=== PATIENT | male | born 1985 ===

== ENCOUNTER 2021-09-26 21:09 | Inpatient (IN) | payer SELFPAY ==
[2021-09-26 22:27] LABS: CHLORIDE,CL 105 mmol/L (98-107); ESTIMATED GFR 106 mL/min (>=60); SODIUM,NA 145 mmol/L (136-145)
[2021-09-26] MEDS ORDERED: Acetaminophen 325 MG Tab PO PRN (23:39)
[2021-09-26] MEDS ORDERED: Calcium Chloride 10% 1 GM/10 ML Syringe IVPUSH ONE (23:48)
[2021-09-27] MEDS ORDERED: LORazepam 1 MG Tab PO PRN ×3 (00:05→23:04)
[2021-09-27] MEDS ORDERED: Calcium Gluc in NaCl, ISO-OSM 1,000 MG in Premix Bag 1 BAG IV ONE ×2 (00:44)
[2021-09-27] MEDS: Gabapentin 300 MG Cap PO SCH ×3 (07:59→20:22)
[2021-09-27] MEDS: Calcium Carbonate/Vitamin D3 625 MG-125 Unit Tab PO SCH ×3 (07:59→20:22)
[2021-09-27 08:16] LABS: ANION GAP 19.3 meq/L (7-15)
[2021-09-27] MEDS: LORazepam 2 MG/ML SDV IVPUSH PRN ×3 (13:43→23:48)
[2021-09-27 16:03] LABS: BARBITURATE SCREEN,URINE NEGATIVE (NEGATIVE); BENZODIAZEPINES SCREEN,URINE POSITIVE (NEGATIVE); EDDP,URINE SCREEN NEGATIVE (NEGATIVE); TCA SCREEN,URINE NEGATIVE (NEGATIVE); THC SCREEN,URINE 50 NG/ML POSITIVE (NEGATIVE)
[2021-09-27 16:06] LABS: BUPRENORPHINE SCREEN,URINE NEGATIVE (NEGATIVE)
[2021-09-28] MEDS: LORazepam 2 MG/ML SDV IVPUSH PRN ×4 (01:35→09:08)
[2021-09-28] MEDS: Haloperidol Lactate 5 MG/ML SDV IVPUSH PRN ×2 (07:27→14:40)
[2021-09-28] MEDS ORDERED: Calcium Gluconate 10% 1 GM/10 ML SDV IVPUSH ONE (07:49)
[2021-09-28 08:26] LABS: ANION GAP 12.3 meq/L (7-15)
[2021-09-28] MEDS ORDERED: Calcium Gluconate 10% 1 GM/10 ML SDV ONE (09:56)
[2021-09-28] MEDS ORDERED: Sodium Chloride 0.9% 1,000 ML IV SCH (10:00)
[2021-09-28] MEDS: Potassium Chloride Riders 10 MEQ in Premix Bag 1 BAG IV SCH ×2 (10:21→11:29)
[2021-09-28] MEDS: Gabapentin 300 MG Cap PO SCH ×3 (11:31→18:03)
[2021-09-28] MEDS: Calcium Carbonate/Vitamin D3 625 MG-125 Unit Tab PO SCH ×3 (11:32→18:03)
[2021-09-28] MEDS ORDERED: Folic Acid 1 MG Tab PO SCH (12:00)
[2021-09-28] MEDS: Magnesium Sulfate/Water 2 GM in Premix Bag 1 BAG IV SCH ×2 (12:31→15:15)
[2021-09-28] MEDS ORDERED: LORazepam 1 MG Tab PO PRN (13:51)
[2021-09-28 16:14] LABS: ANION GAP 10.5 meq/L (7-15)
[2021-09-28] MEDS ORDERED: Potassium Chloride Riders 10 MEQ in Premix Bag 1 BAG IV ONE (19:15)
[2021-09-29] MEDS ORDERED: Thiamine 200 MG/2 ML MDV IVPUSH SCH (12:00)
== END 2021-09-28 20:50 | DRG 897 ==
LOC: LL.ED 21:09 → LL.MS 22:45
PROVIDERS: ADMIT Family Medicine; ATTEND Emergency Medicine
DX: F10.10 Alcohol abuse, uncomplicated (principal); R53.1 Weakness; K76.9 Liver disease, unspecified; E87.6 Hypokalemia; E83.51 Hypocalcemia; F19.10 Other psychoactive substance abuse, uncomplicated; R20.0 Anesthesia of skin; E61.2 Magnesium deficiency; R56.9 Unspecified convulsions; Z86.73 Personal history of transient ischemic attack (TIA), and cerebral infarction without residual deficits; Z87.820 Personal history of traumatic brain injury; Z87.898 Personal history of other specified conditions
CPT/HCPCS: 36415; 70450; 80048; 80053; 80305-QW; 80307; 82140; 83735; 85025; 85610; 93005; 93010; 97163-GP; 99223; 99233; 99239; A9270-GY; J0610; J1630; J2060; J3475; J3480; J7030

== ENCOUNTER 2021-10-06 01:14 | Emergency (ER) | payer SELFPAY ==
[2021-10-06] MEDS ORDERED: Sodium Chloride 0.9% 10 ML Syringe FLUSH PRN (01:18)
[2021-10-06] MEDS ORDERED: Sodium Chloride 0.9% 1,000 ML IV ONE ×3 (01:18→08:36)
[2021-10-06 02:16] LABS: CHLORIDE,CL 111 mmol/L (98-107); SODIUM,NA 147 mmol/L (136-145)
[2021-10-06 02:17] LABS: ANION GAP 14.9 meq/L (7-15); ESTIMATED GFR 123 mL/min (>=60)
[2021-10-06] MEDS ORDERED: LORazepam 1 MG Tab PO ONE (04:00)
[2021-10-06 06:49] LABS: BARBITURATE SCREEN,URINE NEGATIVE (NEGATIVE); BENZODIAZEPINES SCREEN,URINE POSITIVE (NEGATIVE); EDDP,URINE SCREEN NEGATIVE (NEGATIVE); TCA SCREEN,URINE NEGATIVE (NEGATIVE); THC SCREEN,URINE 50 NG/ML NEGATIVE (NEGATIVE)
[2021-10-06 06:52] LABS: BUPRENORPHINE SCREEN,URINE NEGATIVE (NEGATIVE)
[2021-10-06] MEDS ORDERED: Lactated Ringers 1,000 ML IV SCH (08:45)
[2021-10-06] MEDS ORDERED: Sodium Chloride 0.45% 1,000 ML IV SCH (08:45)
== END 2021-10-06 11:15 | disposition still patient (30) ==
LOC: LL.ED 01:14
DX: F10.10 Alcohol abuse, uncomplicated (principal); Y90.1 Blood alcohol level of 20-39 mg/100 ml
CPT/HCPCS: 36415; 80053; 80305-QW; 80307; 81003; 83605; 83735; 85025; 96361; 96365; 99284; 99285-25; A9270-GY; J3475; J7030

== ENCOUNTER 2021-10-27 12:26 | Emergency (ER) | payer SELFPAY ==
[2021-10-27] MEDS ORDERED: LORazepam 2 MG/ML SDV IVPUSH PRN (13:08)
[2021-10-27] MEDS: Sodium Chloride 0.9% 10 ML Syringe FLUSH PRN ×2 (13:32→15:00)
[2021-10-27 14:07] LABS: ANION GAP 16.7 meq/L (7-15)
[2021-10-27] MEDS ORDERED: Potassium Chloride 20 MEQ Tab.ER PO ONE ×2 (14:48→19:02)
[2021-10-27] MEDS: Magnesium Sulfate/Water 2 GM in Premix Bag 1 BAG IV SCH ×2 (14:58→16:45)
[2021-10-27 17:27] LABS: BARBITURATE SCREEN,URINE NEGATIVE (NEGATIVE); BENZODIAZEPINES SCREEN,URINE POSITIVE (NEGATIVE); EDDP,URINE SCREEN NEGATIVE (NEGATIVE); TCA SCREEN,URINE NEGATIVE (NEGATIVE); THC SCREEN,URINE 50 NG/ML POSITIVE (NEGATIVE)
[2021-10-27 17:29] LABS: BUPRENORPHINE SCREEN,URINE NEGATIVE (NEGATIVE)
== END 2021-10-27 19:16 | disposition home or self-care (01) ==
LOC: LL.ED 12:26
DX: G40.909 Epilepsy, unspecified, not intractable, without status epilepticus (principal); E87.6 Hypokalemia; E83.42 Hypomagnesemia; F17.210 Nicotine dependence, cigarettes, uncomplicated; Z79.899 Other long term (current) drug therapy; Z90.49 Acquired absence of other specified parts of digestive tract
CPT/HCPCS: 36415; 70450; 80053; 80143; 80179; 80305-QW; 80307; 81001; 82550; 83605; 83735; 85025; 96365; 96366; 96375; 99284-25; A9270-GY; J2060; J3475; J3490